=== PATIENT | female | born 1995 | race Caucasian/White ===

== ENCOUNTER 2016-08-06 03:10 | Inpatient (IN) ==
[2016-08-06 04:10] LABS: MANUAL DIFF NEEDED? NO
[2016-08-06 04:13] LABS: BASO% 0.7 % (0.0-0.8); EOS% 4.9 % (0.0-10.0); HEMATOCRIT 40.8 % (37.0-47.0); LYMPH# 1.98 X1000 (1.2-3.4); LYMPH% 24.2 % (20.5-51.1); MCH 30.2 PG (27-31); MCHC 34.3 g/dL (33-37); MCV 87.9 FL (81-99); MONO# 0.96 X1000 (0.11-0.59); MONO% 11.8 % (1.7-9.3); MPV 10.2 FL (7.4-10.4); NEUT% 58.4 % (42.2-75.2); PLT 272 X1000 (130-400); RBC 4.64 XMIL (4.2-5.4)
[2016-08-06 04:27] LABS: AGAP 11; ALBUMIN 4.1 g/dL (3.5-5.0); ALKALINE PHOSPHATASE 87 U/L (32-104); AMYLASE 50 U/L (20-200); BUN 12 mg/dL (8-22); CALCIUM 9.1 mg/dL (8.8-10.2); CHLORIDE 102 mmol/L (98-107); COSMO 276; GOT 36 U/L (10-30); GPT 38 U/L (10-36); LIPASE 47 U/L (13-60); POTASSIUM 3.9 mmol/L (3.5-5.1); SODIUM 138 mmol/L (136-145); TCO2 25 mmol/L (25-35); TOTAL BILIRUBIN 0.39 mg/dL (0.20-1.00); TOTAL PROTEIN 7.2 g/dL (6.3-8.3)
[2016-08-06] MEDS ORDERED: DILAUDID IV ONE (04:40)
[2016-08-06] MEDS ORDERED: PHENERGAN IV ONE (04:41)
[2016-08-06] MEDS ORDERED: SODIUM CHLORIDE 0.9% INJ ONE (04:41)
[2016-08-06 05:31] LABS: URINE MICRO REVIEW NEEDED? NO; URINE SOURCE CLEAN CATCH
[2016-08-06 05:40] LABS: BILIRUBIN URINE NEGATIVE (NEGATIVE); BLOOD URINE SMALL (NEGATIVE); COLOR YELLOW; GLUCOSE URINE NEGATIVE (NEGATIVE); LEUKOCYTES URINE SMALL (NEGATIVE); NITRITE URINE NEGATIVE (NEGATIVE); PH URINE 7.5; PROTEIN URINE TRACE mg/dL (NEGATIVE); TURBIDITY URINE CLEAR (CLEAR); UROBILINOGEN URINE NORMAL (NORMAL)
[2016-08-06 05:42] LABS: UR EPITHELIAL CELLS <10 /HPF (<10); URINE BACTERIA NEGATIVE /HPF; URINE CULTURE NEEDED? YES; URINE RBC <10 /HPF (<10); URINE WBC <10 /HPF (<10)
--- NOTE | 2016-08-06 05:44 | PROVIDER DOCUMENTATION ---
HPI-Abdominal Pain/GI Problem - General Chief Complaint: Abdominal Pain Stated Complaint: VOMITING Time Seen by Provider: 08/06/16 04:14 Source: patient Allergies/Adverse Reactions: Patient Allergies Allergy/AdvReac Type Severity Reaction Status Date / Time amoxicillin Allergy SWELLING Verified 08/11/16 20:37 sertraline HCl * AdvReac ANGRY; Verified 08/11/16 20:37 [From Zoloft] ANTISOCIAL sulfamethoxazole AdvReac NAUSEA Verified 08/11/16 20:37 [From Bactrim] tramadol AdvReac NAUSEA Verified 08/11/16 20:37 trazodone AdvReac NIGHTMARES Verified 08/11/16 20:37 trimethoprim [From Bactrim] AdvReac NAUSEA Verified 08/11/16 20:37 Home Medications: Home Medication List Medication Instructions Recorded Confirmed Last Taken Type Clindamycin [Cleocin] 150 mg PO Q6HR #30 capsule 07/31/16 08/11/16 08/11/16 Rx Fluconazole [Diflucan] 150 mg PO DAILY #2 tablet 07/31/16 08/11/16 08/11/16 Rx Metronidazole [Flagyl] 500 mg PO BID #20 tablet 07/31/16 08/11/16 08/11/16 Rx Hydrocodone/Acetaminophen [[place] 1 each PO Q4HR PRN #30 tablet 08/07/1608/11/16 Rx 10-325 Tablet] Hydroxyzine Pamoate [Vistaril] 25 mg PO Q6H PRN PRN #20 capsule 08/11/16 Unknown Rx - History of Present Illness-ABD Nature of Presenting Problems: 21 yo WF was seen a few days ago by TAPER/FINISHER with vaginal discharge and what was felt to be PID. She was treated withRocephin and discharged on Cleocin and Flagyl. She improved and felt well until late this afternoon when she began to feel poorly . About two hours ago she developed severe pelvic pain, vomiting and chills.. Abdominal Pain Onset Location: reports: suprapubic Pain Radiation: reports: no radiation Quality of Pain: reports: sharp Severity in ED: reports: severe Onset/Duration: reports: 1-3 hours ago Timing: reports: getting worse Activities at Onset: reports: none Exposure to sick contacts?: No Associated Symptoms: reports: fever/chills, vomiting Last BM: 24 hours ago Dark Stools Present?: reports: none noticed Rectal Bleeding: reports: none # of Vomiting Episodes: 2 Recently seen or treated by another doctor?: Yes (JE 07/31) Review of Systems - Adult - REVIEW OF SYSTEMS - ADULT Constitutional: reports: chills Eyes: reports: no symptoms reported Ears, Nose, Mouth & Throat: reports: no symptoms reported Cardiovascular: reports: no symptoms reported Respiratory: reports: no symptoms reported Gastrointestinal: reports: no symptoms reported Genitourinary: reports: no symptoms reported Musculoskeletal: reports: no symptoms reported Neurological: reports: no symptoms reported Psychiatric: reports: no symptoms reported Endocrine: reports: no symptoms reported Hematologic/Lymphatic: reports: no symptoms reported Allergic/Immunologic: reports: no symptoms reported Past History - Adult - PAST MEDICAL HISTORY-ADULT Review of Records: reports: Old Records Reviewed, Nursing Assessment Review, Medications Reviewed Major Childhood Illnesses: reports: other (Pt had unknown hear diseas as and has seen acoustical logging engineer every six months until 3 years ago when she lost her insurance) Cardiovascular: reports: other (see above) Respiratory: reports: asthma Gastrointestinal: reports: denies history Obstetrical/Gynecological: reports: denies history, PID/STD. denies: - spont/elective, ectopic , endometriosis Musculoskeletal: reports: denies history Neurological: reports: denies history Psychiatric: reports: anxiety Endocrine/Immune: reports: denies history - PRIOR SURGERIES/PROCEDURES Surgical/Procedure History: reports: none - IMMUNIZATION STATUS Childhood Immunizations: See Nurse Assessment Flu Vaccine: See Nurse Assessment - FAMILY HISTORY Family History: reviewed, not pertinent Physical Exam-General - PHYSICAL EXAM-ADULT Initial Vital Signs Reviewed: Yes - CONSTITUTIONAL General Appearance: moderate distress, thin - EYES Eyes: PERRL/EOMI, pink conjunctivae - HEAD, EARS, NOSE, MOUTH & THROAT HENMT: normocephalic/atraumatic, moist mucous membranes, normal ENT inspection - NECK Neck: non-tender, full range of motion - RESPIRATORY Respiratory: lungs clear, normal breath sounds - CARDIOVASCULAR Cardiovascular: normal peripheral pulses, regular rate, rhythm - GASTROINTESTINAL (ABDOMEN) Abdominal Exam: normal bowel sounds, guarding, rigid, McBurney's point tenderness - LYMPHATIC Lymphatic: no adenopathy - MUSCULOSKELETAL Back Exam: normal inspection - SKIN Integumentary: normal color, normal turgor, warm/dry - NEUROLOGIC Neurologic: grossly normal Progress - PLAN OF CARE/RESULTS Progress/Plan/Lab Results: Vital Signs - 8 hr 08/06/16 03:13 Temperature 98.3 F Pulse Rate 92 H Respiratory Rate 32 H Blood Pressure 161/91 O2 Sat by Pulse Oximetry 100 Laboratory Results - last 24 hr 08/06/16 08/06/16 08/06/16 03:54 03:54 05:00 WBC 8.17 RBC 4.64 Hgb 14.0 Hct 40.8 MCV 87.9 MCH 30.2 MCHC 34.3 RDW Std Deviation 12.6 Plt Count 272 MPV 10.2 Immature Gran % (Auto) 0.0 Neut % (Auto) 58.4 Lymph % (Auto) 24.2 [place] % (Auto) 11.8 H Eos % (Auto) 4.9 Baso % (Auto) 0.7 Immature Gran # (Auto) 0.00 Neut # (Auto) 4.77 Lymph # (Auto) 1.98 [place] # (Auto) 0.96 H Eos # (Auto) 0.40 Baso # (Auto) 0.06 Sodium 138 Potassium 3.9 Chloride 102 Carbon Dioxide 25 Anion Gap 11 BUN 12 Creatinine 0.6 Estimated GFR/1.73 m2 > 60 BUN/Creatinine Ratio 20 Glucose 103 Calculated Osmolality 276 Calcium 9.1 Total Bilirubin 0.39 AST 36 H ALT 38 H Alkaline Phosphatase 87 Total Protein 7.2 Albumin 4.1 Globulin 3.1 Albumin/Globulin Ratio 1.3 Amylase 50 Lipase 47 Urine Source CLEAN CATCH Orders Category Date Time Status Saline Loc DIRECTED Care 08/06/16 03:36 Active NPO Diet 08/06/16 03:[address] ABD/PELVIS W/ IV CONT ONLY [CT] Stat Exams 08/06/16 04:40 Taken AMYLASE [CHEM] Stat Lab 08/06/16 03:54 Completed CBC WITH ELECTRONIC DIFF [HEME] Stat Lab 08/06/16 03:54 Completed COMPREHENSIVE METABOLIC PANEL [CHEM] Stat Lab 08/06/16 03:54 Completed LIPASE [CHEM] Stat Lab 08/06/16 03:54 Completed URINALYSIS W/POSS RFLX CULT-1 [URINALYSIS] Stat Lab 08/06/16 05:00 Results Hydromorphone [Dilaudid] Med 08/06/16 04:40 Discontinued 1 mg IV NOW ONE Promethazine [Phenergan] Med 08/06/16 04:41 Discontinued 12.5 mg IV NOW ONE Sodium Chloride 0.9% Med 08/06/16 04:41 Discontinued 10 ml INJ NOW ONE Result Diagrams: 08/07/16 05:45 08/06/16 03:54 - REASSESSMENT Reassessment #1 Status: unchanged (Lab reviewed - CT nondiagnostic so will contact surgeon. May need observation or laporoscopy) - CHANGE OF SHIFT REPORT (ED Provider) Items Pending: Physician Consult/Arrival Departure - Departure Date of Disposition Decision: 08/06/16 Time of Disposition Decision: 08:50 DIAGNOSIS: Pelvic pain Disposition: ADMITTED INPATIENT 09 Certified Medical Emergency: Emergent Condition: Good - Critical Care Note This patient required my direct & personal management of CC.: No
[2016-08-06] MEDS ORDERED: TORADOL IM ONE (06:14)
[2016-08-06 06:51] LABS: SP GRAVITY URINE > 1.030
--- NOTE | 2016-08-06 07:18 | Diag Imaging Result Doc PS360 ---
EXAM: CT ABD/PELVIS W/ IV CONT ONLY HISTORY: pelvic/abd pain TECHNIQUE: CT of the abdomen and pelvis with intravenous contrast with reduced dose (clarity.) COMMENT: There are no previous studies. There is no evidence of acute disease in the visualized portions of the chest. The liver spleen adrenal glands and pancreas are within normal limits. There is no evidence of hydronephrosis or mass in the kidneys. There is stool throughout the colon. The small bowel is not distended. There is no evidence of gallstones. CT of the pelvis with intravenous contrast: There is a 16 mm right inguinal node. The uterus is displaced to the right. There are multiple follicles in both ovaries. There is a small amount of free fluid in the cul-de-sac. The appendix is not clearly identifiable. No definite evidence of appendicitis otherwise is present. There is no evidence of acute disease in the visualized skeleton. IMPRESSION: Nonspecific free pelvic fluid. Constipation. The findings were discussed with Buzz Miller MD at 08/06/2016 7:16 AM. Electronically signed by Madhu Serrato 08/06/2016 7:16 AM
--- NOTE | 2016-08-06 08:05 | Diag Imaging Result Doc PS360 ---
US PELVIC NON-PSYCHOLOGICAL ASSISTANT COMPLETE - 08/06/2016 INDICATION: SEVERE PELVIC PAIN TECHNIQUE: Endovaginal COMPARISON: CT from earlier this morning FINDINGS: The uterus and ovaries are normal. There is no mass or abnormal fluid. The uterus measures 7.3 x 4.3 x 2.6 cm. Endometrial stripe thickness is 2 mm. There is a 4 mm nabothian cyst in the cervix. There is normal blood flow to the ovaries. The right ovary measures 2.7 x 1.6 x 1.7 cm. The left ovary measures 3.9 x 1.5 x 1.8 cm. IMPRESSION: Negative exam. Electronically signed by Tyler Celestin 08/06/2016 8:02 AM
[2016-08-06] MEDS ORDERED: DILAUDID IV PRN (08:20)
[2016-08-06] MEDS ORDERED: NS 1,000 ML IV ONE (08:20)
[2016-08-06] MEDS ORDERED: NORCO-5 PO ONE (08:43)
[2016-08-06] MEDS ORDERED: NORCO-5 ONE (08:45)
[2016-08-06] MEDS: FLAGYL 500 MG/NS 500 MG/100 ML IVPB IV SCH ×2 (08:54→21:07)
--- NOTE | 2016-08-06 09:25 | HISTORY AND PHYSICAL ---
ADMITTING DIAGNOSIS: Pelvic pain. HISTORY OF PRESENT ILLNESS: A 21-year-old female, seen in the emergency department several days prior with vaginal discharge, and felt to be potentially PID. She was treated with Rocephin and discharged with Cleocin and Flagyl. She says that she was doing well, had started her menstrual cycle and finished it, and then reported sudden onset of right lower quadrant pain started at 2 a.m. She denies any kind of pain like this in the past. Does report some right flank wall pain, but no other areas. She does report the pain is sharp and severe. She had a CT scan that was essentially normal. Had a pelvic ultrasound that was essentially normal. Given her abdominal pain, I was asked to evaluate the patient and admit her for observation. PAST MEDICAL HISTORY: 1. Previous diagnosis of pelvic inflammatory disease. 2. Unspecified childhood heart disease. 3. Asthma. PAST SURGICAL HISTORY: None. FAMILY HISTORY: Reviewed with patient, but noncontributory. ALLERGIES: Amoxicillin, Zoloft, Bactrim, tramadol, and trazodone. HOME MEDICATIONS: Cleocin, Diflucan, and Flagyl. SOCIAL HISTORY: Patient denies smoking. REVIEW OF SYSTEMS: A full 10-point review of systems obtained, negative except as specified in the HPI. PHYSICAL EXAMINATION: VITAL SIGNS: The patient is currently afebrile. Temperature 97.9, pulse of 60, respiratory rate 20 and nonlabored. Blood pressure 117/82. O2 saturation 100% on room air. GENERAL: In no acute distress, but appears mildly uncomfortable. female, looks stated age. HEENT: Normocephalic, atraumatic. Pupils equal, round, reactive to light. Mucous membranes moist. Oropharynx benign. NECK: Supple. Trachea midline. CARDIOVASCULAR: Regular rate and rhythm. LUNGS: Grossly clear. ABDOMEN: Soft, nondistended. There is some tenderness to palpation in the right lower quadrant. There is also some right flank tenderness. No real significant left lower quadrant pain. EXTREMITIES: Moves all extremities. NEUROLOGIC: Grossly intact. SKIN: No signs of jaundice. VASCULAR: All extremities perfused. LABORATORY STUDIES: Her white blood cell count is 8.7, it was 6.7 on 07/31/2016. Hematocrit is 40.8, platelet count 272,000. There is no left shift appreciated in her labs. The remainder of the labs are within normal limits. She does have a UA that shows a high urine specific gravity. Urine protein is trace. Urine blood is trace, and small amount of leukocyte esterase. CT scan independently reviewed and radiology report reviewed, and noted above. Transvaginal ultrasound independently reviewed and radiology report reviewed and noted above. ASSESSMENT AND PLAN: A 21-year-old female with right lower quadrant and pelvic pain. Right lower quadrant and pelvic pain. At this time, I have no obvious etiology. She has essentially a normal CT scan, a normal transvaginal ultrasound. Her appendix does not look like there is any periappendiceal inflammation. She has normal white count with no left shift, but given her exam, I will admit the patient and watch her overnight. If anything changes, could potentially to a diagnostic laparoscopy. cc: Jordon Miller MD
[2016-08-06 09:56] LABS: UR AMPHETAMINES QUAL NONE DETECTED (NONE DETECT); UR BARBITUATES QUAL NONE DETECTED (NONE DETECT); UR BENZODIAZEPIN QUAL NONE DETECTED (NONE DETECT); UR CANNABINOIDS QUAL NONE DETECTED (NONE DETECT); UR COCAINE QUAL NONE DETECTED (NONE DETECT); UR METHADONE QUAL NONE DETECTED (NONE DETECT); UR OPIATES QUAL NONE DETECTED (NONE DETECT); UR OXYCODONE QUAL NONE DETECTED (NONE DETECT); UR PCP QUAL NONE DETECTED (NONE DETECT)
[2016-08-06] MEDS: LR 1,000 ML IV SCH ×2 (11:14→23:50)
[2016-08-06] MEDS ORDERED: TYLENOL PO PRN (12:35)
[2016-08-06] MEDS: ZOFRAN IV PRN ×2 (13:10→18:49)
[2016-08-06] MEDS: NORCO-5 PO PRN ×2 (13:10→17:31)
[2016-08-06] MEDS: MORPHINE IV PRN (21:03)
[2016-08-07] MEDS: LR 1,000 ML IV SCH (04:21)
[2016-08-07] MEDS: ZOFRAN IV PRN ×4 (04:21→20:10)
[2016-08-07] MEDS: NORCO-5 PO PRN ×3 (04:29→20:10)
--- NOTE | 2016-08-07 05:53 | PROGRESS NOTE ---
DATE: 08/07/2016 SUBJECTIVE: The patient did report some pain through the course of the night, although she says it is better with her pain medicine and decreased. Upon arrival in the room, patient was sleeping comfortably with her significant other in the bed with her. OBJECTIVE: Vital Signs: Patient is currently afebrile. Her vital signs are stable. Of note, her heart rates stayed at the 60s and the 70s. General Examination: No acute distress. Resting comfortably in bed. HEENT: Normocephalic, atraumatic. Pupils equal, round, react to light. Mucous membranes moist. Oropharynx benign. Neck: Supple. Trachea midline. Cardiovascular: Regular rate and rhythm. Lungs: Grossly clear. Abdomen: Soft. Less tender to palpation in the right lower quadrant compared to yesterday. No peritonitis. Some mild guarding which is voluntary. Extremities: Moves all extremities. Neurologic: Grossly intact. Skin: No signs of jaundice. Vascular: All extremities perfused. Laboratory: Pending. ASSESSMENT AND PLAN: A 21-year-old, female with right lower quadrant pain. Right lower quadrant pain. At this time, clinically, I do not think it is her appendix. Her labs yesterday were within normal limits with no left shift. She had a CT scan that did not show any periappendiceal inflammation. She also had a transvaginal ultrasound that did not show any ovarian issue. At this time, we will follow up with her labs. If she does have a left shift or a change in her labs, may consider a diagnostic laparoscopy but otherwise I have no indication for surgical intervention. cc: Jordon Miller MD
[2016-08-07 06:18] LABS: MANUAL DIFF NEEDED? NO
[2016-08-07 06:22] LABS: BASO% 0.7 % (0.0-0.8); EOS# 0.38 X1000 (0.0-0.7); HEMOGLOBIN 12.9 g/dL (12.0-16.0); MCHC 33.9 g/dL (33-37)
[2016-08-07 06:28] LABS: EOS% 6.6 % (0.0-10.0); HEMATOCRIT 38.1 % (37.0-47.0); LYMPH# 1.53 X1000 (1.2-3.4); LYMPH% 26.6 % (20.5-51.1); MCH 30.5 PG (27-31); MCV 90.1 FL (81-99); MONO# 0.53 X1000 (0.11-0.59); MONO% 9.2 % (1.7-9.3); MPV 10.6 FL (7.4-10.4); NEUT% 56.9 % (42.2-75.2); PLT 233 X1000 (130-400); RBC 4.23 XMIL (4.2-5.4)
[2016-08-07] MEDS: MORPHINE IV PRN ×2 (08:47→12:09)
[2016-08-07] MEDS: FLAGYL 500 MG/NS 500 MG/100 ML IVPB IV SCH ×2 (09:05→20:07)
--- NOTE | 2016-08-07 12:13 | PROGRESS NOTE ---
DATE: 08/07/2016 SUBJECTIVE: Reviewed patient's labs from this morning and they are essentially normal, although the patient still reports significant right lower quadrant pain. I had a lengthy discussion with her and her significant other in the room about options. She is adamant that something is wrong. Discussed with her the potential for diagnostic laparoscopy, but my suspicion is that there is a low yield for appendicitis, given the normal white blood cell count and normal CT scan. She accepted this risk and wants to proceed with diagnostic laparoscopy. I told her that, regardless, we would likely take her appendix out. Voiced the risks, benefits, and alternatives of the procedure, and again the low potential yield for diagnostic outcome of appendicitis. She still wants to proceed. Given her abdominal pain I think that this is reasonable, and the patient voiced that she understands the risk of the operation. All questions answered. We will schedule for later this afternoon. cc: Jordon Miller MD MTDD
[2016-08-07] MEDS ORDERED: LR 1,000 ML ONE ×2 (15:50→17:30)
[2016-08-07] MEDS ORDERED: XYLOCAINE 1% ONE (15:50)
[2016-08-07] MEDS ORDERED: MARCAINE 0.25% PF/EPI 1:200,000 ONE (15:50)
[2016-08-07] MEDS ORDERED: FENTANYL ONE (16:57)
[2016-08-07] MEDS ORDERED: VERSED ONE (16:58)
[2016-08-07] MEDS ORDERED: DIPRIVAN 1% ONE (16:58)
--- NOTE | 2016-08-07 17:06 | OPERATIVE NOTE ---
PROCEDURE DATE: 08/07/2016 PREOPERATIVE DIAGNOSIS: Right lower quadrant pain. POSTOPERATIVE DIAGNOSES: 1. Right lower quadrant pain. 2. Endometriosis. PROCEDURES: 1. Diagnostic laparoscopy. 2. Laparoscopic appendectomy. 3. Laparoscopic fulguration of endometriosis x 2. SURGEON: Jordon Miller MD. ANIMAL DAYCARE PROVIDER: None. ANESTHESIA: General endotracheal. INTRAOPERATIVE FINDINGS: No major intra-abdominal process was occurring. There is some endometriosis noted down near the bladder and in the right lower quadrant. COMPLICATIONS: None at time of dictation. ESTIMATED BLOOD LOSS: 5 mL. SPECIMENS REMOVED: Appendix. BRIEF HISTORY: Patient is a 21-year-old female presenting with right lower quadrant pain. She initially had a CT scan that did not show visualized appendix but no signs of periappendiceal appendicitis or inflammation. She had a normal white count, but she had persistent pain. I gave her the option for diagnostic laparoscopy. She wanted to proceed with this. The risks, benefits and alternatives were discussed. All questions were answered. DESCRIPTION OF PROCEDURE: After informed consent was obtained, patient was brought to the operative theatre, transferred to the operating table and placed in the supine position. General endotracheal anesthesia was then performed without complication. A formal time- out was then performed confirming patient, date, and procedure. All were in agreement. At that time, attention was given to the abdomen. The patient had a pre-existing umbilical hernia which we used to facilitate the initial insertion of the trocar. We elevated the umbilicus and made an incision between the middle of the umbilicus and inserted initially a 5 mm trocar through the defect connected to insufflation. Pneumoperitoneum was achieved. Under direct visualization, we placed 2 more trocars, both at 5 mm one in the right upper quadrant and one on the left lower quadrant. We did switch the initial umbilical trocar to a 12 mm trocar. We examined the abdomen in it's entirety. There appeared to be some endometriosis down in the pelvis in two spots. The appendix appeared grossly normal. We saw no other intra-abdominal process. Given her right lower quadrant pain, we elected to remove the appendix to make this not a confounding issue down the road. We elevated the appendix and made a window in the base of the mesoappendix, fired a stapler across with good results leaving less than 5 mm of the stump of the appendix. We then fired across the mesoappendix maintaining hemostasis with electrocautery and the staple line. There is no active bleeding. No drainage of succus or stool. The small bowel was not injured and the colon was not injured also during the process of removing the appendix. We brought it out through the trocar site of the umbilicus. We then turned our attention to the endometriosis. Given its location, we elected to fulgurate this. We placed electrocautery on the 2 areas, there was one on the right lower quadrant in the pelvic wall and one near the bladder. We did a careful fulguration with electrocautery to destroy the lesions. We then removed all trocars, and disconnected insufflation. Pneumoperitoneum was released. We then closed the umbilical incision with a figure- of-eight 0 Vicryl with good results. We closed all skin incisions. We placed a suction dressing at the umbilicus. The patient tolerated procedure well. She will be discharged home. cc: MD TIA Vu
[2016-08-07] MEDS: PHENERGAN ONE ×2 (17:18→17:27)
[2016-08-07] MEDS ORDERED: MORPHINE ONE (17:26)
[2016-08-07 19:30] VITALS: BP 120/62
[2016-08-08] MEDS ORDERED: ZOFRAN ONE (08:25)
[2016-08-08] MEDS ORDERED: QUELICIN (DOSE) ONE (08:25)
[2016-08-08] MEDS ORDERED: DECADRON ONE (08:25)
[2016-08-08] MEDS ORDERED: ROBINUL ONE (08:25)
[2016-08-08] MEDS ORDERED: NEOSTIGMINE ONE (08:25)
[2016-08-08] MEDS ORDERED: LR 1,000 ML ONE (08:25)
[2016-08-08] MEDS ORDERED: TORADOL ONE (08:25)
[2016-08-08] MEDS ORDERED: NORCURON ONE (08:25)
[2016-08-08] MEDS ORDERED: XYLOCAINE-MPF 2% ONE (08:25)
== END 2016-08-07 21:30 | disposition home or self-care (01) ==
LOC: 4N 03:10 → ED 03:10 → OBSVTOIN 08:52 → 4N 09:04
PROVIDERS: ADMIT Surgery; ATTEND Surgery